=== PATIENT | male | born 1995 | race Caucasian/White ===

== ENCOUNTER 2024-11-02 18:47 | Emergency (ER) | payer BC, SELFPAY ==
[2024-11-02 18:49] VITALS: BP 170/95; PULSE 74; RESP 16; TEMP 37.3; O2SAT 100; BMI 29.5
--- NOTE | 2024-11-02 18:51 | ED_ITS ---
<Statement entered by Faith Martinez DO - 11/02/24 23:53> I was consulted by the SEPIDE[facility], and we discussed the complexity of the problems being addressed. I approved the treatment and management plan for this patient's care in the emergency department, thus performing a substantive portion of the medical decision making. Faith Martinez DO Discharge Plan Disposition Patient Disposition: Home, Self-Care Condition: Good Referrals Follow up/Referrals: Provider,Referral, MD [Primary Care Provider] - See instructions Activity Restrictions/Add. Instructions Additional Instructions/Restrictions: As we discussed if you have increasing intractable headache change in level of consciousness intractable vomiting return to the emergency department medially. I have given you precautions sheet for close head injury. May take Tylenol alternating with Motrin for symptoms. Clinical Impressions Clinical Impression: Fall Qualifiers: Encounter type: initial encounter Qualified Code(s): W19.XXXA - Unspecified fall, initial encounter Instructions Patient Instructions: Closed Head Injury Print Language Print Language: Belgian Discharge ED Provider: Faith Martinez General Adult HPI General Chief complaint: PAIN Stated complaint: AO 1-15 fell and hit back and head Time Seen by Provider: 11/02/24 18:51 History of Present Illness HPI narrative: Patient presents for evaluation of a slip and fall on ice. Patient states that he slipped on ice in his feet when after running he landed on the back striking his head. The ice was over gravel and not a hard service. He denies any loss of consciousness change in level of consciousness nausea vomiting headache or any other injury or pain. Related Data Allergies Allergy/AdvReac Type Severity Reaction Status Date / Time No Known Allergies Allergy Verified 11/02/24 18:58 [facility] Disclaimer: The information contained in this section may have been updated after the patient was seen, as this information can be updated by other users. Social History Smoking Status: Never smoker alcohol intake: never current occupational status: employed Travel in the last 8 weeks: None ROS Obtained: Yes Systems reviewed as appropriate & no additional complaints except as documented Physical Exam General General appearance: alert and in no apparent distress Head Head exam: atraumatic and normal inspection Eye Eye exam: Present normal appearance, PERRL and EOMI ENT ENT exam: Present normal exam, normal oropharynx and mucous membranes moist Neck Neck exam: Present normal inspection and full ROM; Absent tenderness Chest Chest inspection: Present normal inspection and symmetric chest wall rise Respiratory Respiratory exam: Present normal lung sounds bilaterally Cardiovascular Cardiovascular exam: Present regular rate Neurological Exam Neurological exam: Present alert and oriented X3 Medical Decision Making Medical Records Screening: Per USPSTF and CDC recommendations, given the prevalence of disease in our region, it is our hospital?s policy to screen for HIV and viral Hepatitis for all patients aged 18 and over and those with ongoing risk factors. Jason Inquiry Pt receiving controlled substance: No Vital Signs: 11/02/24 18:49 11/02/24 19:01 11/02/24 19:30 Temperature 99.2 F Temperature Source Oral Pulse Rate 73 70 Pulse Rate [Left Radial] 74 Respiratory Rate 16 Blood Pressure 153/88 H 171/93 H Blood Pressure [Right Arm] 170/95 H Blood Pressure Mean [Right Arm] 120 02 Sat by Pulse Oximetry 100 100 99 Oxygen Delivery Method Room Air Orders (Tests/Meds): ED MEDICATIONS Discontinued Medications Generic Name Dose Route Start Last Admin Trade Name Freq PRN Reason Stop Dose Admin Ondansetron HCl 4 mg 11/02/24 19:33 11/02/24 19:41 Ondansetron 4mg Odt SL 11/02/24 19:34 4 mg ONCE ONE Administration ORDERS Category Date Time Status CT cervical spine wo con Stat Cat Scan 11/02/24 19:[address] head/brain wo con Stat Cat Scan 11/02/24 19:42 Completed Medical Decision Narrative: In summary patient is a 29-year-old male who presents to the emergency department for evaluation of fall and a head injury. Patient is initially hypertensive with a blood pressure 170/95 but with a pulse of 74 breathing 16 times a minute satting at 100% on room air upon arrival, with a temperature of 99.2 currently. Physical exam reveals a normal cranial exam with no evidence of contusions bony deformities abrasions lacerations. Patient is neurologically intact with no focal deficits ambulated in the emergency department witnessed by myself with no gait abnormalities- pupils equal round reactive to light accommodation and extraocular movements are intact without pain. There is no C-spine T-spine L-spine tenderness in the midline to palpation. Patient is awake alert and oriented to person place and circumstance. Cranial nerves II through XII are intact grossly to exam. . Differential diagnosis includes contusion versus closed head injury versus C-spine injury versus fall etc. Initial workup will be conducted with CT scan of the head and C-spine without contrast. Initial interventions include Zofran as patient reports some nausea riding in the car over here. Initial workup reviewed by me and via my informal interpretation of his imaging I do not see any acute intracranial injury skull fracture or C-spine injury prior to radiology read. Upon repeat evaluation patient remains neurologically intact with [place] Coma Score 15 awake alert and oriented and no focal deficits. Given this patient is appropriate for discharge with close head injury precautions and strict return precautions. Critical Care Critical Care Time Critical Care Time: No
[2024-11-02 19:01] VITALS: BP 153/88; PULSE 73; O2SAT 100
[2024-11-02 19:30] VITALS: BP 171/93; PULSE 70; O2SAT 99
--- NOTE | 2024-11-02 19:32 | CT_ITS ---
PROCEDURE INFORMATION: Exam: CT Cervical Spine Without Contrast Exam date and time: 11/02/2024 8:03 PM Age: 29 years old Clinical indication: Neck pain; Additional info: Slipped on ice and hit head TECHNIQUE: Imaging protocol: Computed tomography of the cervical spine without contrast. Radiation optimization: All CT scans at this facility use at least one of these dose optimization techniques: automated exposure control; mA and/or kV adjustment per patient size (includes targeted exams where dose is matched to clinical indication); or iterative reconstruction. COMPARISON: CT HEAD/BRAIN WO CON 11/02/2024 8:01 PM FINDINGS: Bones: No acute fracture or traumatic subluxation. No spondylolisthesis. The atlantooccipital and atlantoaxial articulations are intact. Occipital condyles are intact. Facet joint alignments are maintained. Prevertebral and retropharyngeal spaces: No prevertebral soft tissue swelling. Lungs: Lung apices are normal. Soft tissues: Unremarkable. IMPRESSION: No acute fracture or traumatic subluxation.
[2024-11-02] MEDS: ONDANSETRON 4MG ODT 4 MG SL (19:41)
--- NOTE | 2024-11-02 19:42 | CT_ITS ---
PROCEDURE INFORMATION: Exam: CT Head Without Contrast Exam date and time: 11/02/2024 8:01 PM Age: 29 years old Clinical indication: Pain; Headache; Additional info: Slipped on ice hit head TECHNIQUE: Imaging protocol: Computed tomography of the head without contrast. Radiation optimization: All CT scans at this facility use at least one of these dose optimization techniques: automated exposure control; mA and/or kV adjustment per patient size (includes targeted exams where dose is matched to clinical indication); or iterative reconstruction. COMPARISON: No relevant prior studies available. FINDINGS: Brain: No evidence for acute transcortical infarct. No mass effect or midline shift. No extra-axial collection. No acute intracranial hemorrhage. Basal cisterns are patent. Cerebral ventricles: No ventriculomegaly. Paranasal sinuses: Visualized sinuses are unremarkable. No fluid levels. Mastoid air cells: Visualized mastoid air cells are well aerated. Bones: Unremarkable. No acute fracture. Soft tissues: Unremarkable. IMPRESSION: No acute intracranial hemorrhage or mass effect.
[2024-11-02 21:16] VITALS: BP 126/73; PULSE 67; RESP 14; TEMP 36.6; O2SAT 99
== END 2024-11-02 21:20 | disposition home or self-care (01) ==
PROVIDERS: Emergency Provider Emergency Medicine
DX: S09.90XA Unspecified injury of head, initial encounter (principal); R51.9 Headache, unspecified; W00.0XXA Fall on same level due to ice and snow, initial encounter; Y93.89 Activity, other specified; Y92.9 Unspecified place or not applicable
CPT/HCPCS: 70450; 72125; 99284; Q0162